=== PATIENT | female | born 1940 | race Caucasian/White ===

== ENCOUNTER 2018-07-08 01:24 | Observation (INO) | payer OTHER ==
[~2018-07-08] VITALS: Ht 167.6 cm; Wt 122.5 kg
[2018-07-08 01:29] VITALS: Ht 167.6 cm; Wt 122.5 kg
[2018-07-08 02:19] LABS: BASOPHIL % 0.9 % (0-2); PLATELET COUNT 364 x10^3mcL (130-400)
[2018-07-08 02:36] LABS: CALCIUM 9.9 mg/dL (8.5-10.1); CARBON DIOXIDE 25.3 mmol/L (21-32); CHLORIDE SERUM 103 mmol/L (98-107); CREATININE SERUM 0.7 mg/dL (0.6-1.0); GLUCOSE SERUM 136 mg/dL (74-106); POTASSIUM SERUM 3.7 mmol/L (3.5-5.1); SODIUM SERUM 137 mmol/L (136-145)
[2018-07-08 02:41] LABS: ALBUMIN 3.1 g/dL (3.4-5.0); ALKALINE PHOSPHATASE 74 U/L (46-116); ALT/SGPT 23 U/L (14-59); AST/SGOT 16 U/L (15-37); BILIRUBIN TOTAL 0.3 mg/dL (0.20-1.00); TOTAL PROTEIN, SERUM 6.8 g/dL (6.4-8.2)
[2018-07-08] MEDS ORDERED: FISH OIL OMEGA1 EAC1 PO (04:23)
[2018-07-08] MEDS ORDERED: GLUCOSAMINE CH1 EAC1 PO (04:24)
[2018-07-08] MEDS ORDERED: BACLOFEN10 MG PO (04:25)
[2018-07-08] MEDS ORDERED: BENAZEPRIL HCL/1 TAB PO (04:25)
[2018-07-08] MEDS ORDERED: NEU300 PO (04:25)
[2018-07-08] MEDS ORDERED: CARVEDILOL12.5 M1 PO (04:25)
[2018-07-08] MEDS ORDERED: DITROPAN XL10 MG PO (04:26)
[2018-07-08] MEDS ORDERED: MULTIVITAMIN1 SGL PO (04:26)
[2018-07-08] MEDS ORDERED: GLIMEPIRIDE2 M1 PO (04:26)
[2018-07-08] MEDS ORDERED: NEPHRO-VITE VITA1 EA PO (04:27)
[2018-07-08] MEDS ORDERED: MASON NATURAL1000 IU PO (04:27)
[2018-07-08] MEDS ORDERED: ESCITALOPRAM10 M1 PO (04:27)
[2018-07-08] MEDS ORDERED: LOVASTATIN20 MG PO (04:28)
[2018-07-08] MEDS ORDERED: LATANOPROST2.5 ML OU (04:28)
[2018-07-08] MEDS ORDERED: GOOD SENSE ASPI81 M3 PO (04:28)
[2018-07-08 05:45] VITALS: BP 119/60
[2018-07-08 08:02] LABS: BILIRUBIN DIRECT 0.09 mg/dL (0.0-0.2); BILIRUBIN TOTAL 0.3 mg/dL (0.20-1.00); TOTAL PROTEIN, SERUM 6.9 g/dL (6.4-8.2)
[2018-07-08 08:03] LABS: ALBUMIN 3.2 g/dL (3.4-5.0)
[2018-07-08 08:55] VITALS: BP 127/75
[2018-07-08 12:32] VITALS: BP 121/76
[2018-07-08 16:18] VITALS: BP 142/53
[2018-07-08 16:45] VITALS: BP 121/76
== END 2018-07-08 17:21 | disposition home or self-care (01) | DRG 880 ==
LOC: ED 01:24 → DU 03:41
PROVIDERS: Emergency Medicine; Internal Medicine
DX: F41.0 Panic disorder [episodic paroxysmal anxiety] (principal); F32.9 Major depressive disorder, single episode, unspecified; R10.13 Epigastric pain; I10 Essential (primary) hypertension; D72.829 Elevated white blood cell count, unspecified; G47.00 Insomnia, unspecified; G47.33 Obstructive sleep apnea (adult) (pediatric); J44.9 Chronic obstructive pulmonary disease, unspecified; E11.9 Type 2 diabetes mellitus without complications; E66.01 Morbid (severe) obesity due to excess calories
CPT/HCPCS: 82962; A9500; G0378; J1170; J1644; J2785; J7030; Q0092